=== PATIENT | female | born 1955 ===

== ENCOUNTER 2022-03-09 05:18 | Day surgery (SDC) | payer OTHER | END 2022-03-09 10:50 | disposition home or self-care (01) | LOC: AMB-ENDOS 05:18 → CIR.AMB 05:18 → AMB-ENDOS 10:50 → CIR.AMB 11:45 | PROVIDERS: ATTEND Colon & Rectal Surgery | DX: D12.3 Benign neoplasm of transverse colon (principal); Z86.010 Personal history of colon polyps; K92.1 Melena; Z20.822 Contact with and (suspected) exposure to COVID-19; I10 Essential (primary) hypertension ==

== ENCOUNTER 2022-06-01 04:50 | Inpatient (IN) | payer OTHER ==
[~2022-06-01] VITALS: Ht 157.5 cm; Wt 88.9 kg
[~2022-06-01 04:50] MED LIST: COZAAR100 MG PO; SIMVASTA PO
[2022-06-03] MEDS ORDERED: PERCOCET 5-3251 EACH PO ×2 (11:12→11:20)
== END 2022-06-03 11:43 | disposition home or self-care (01) | DRG 328 ==
LOC: CIR.AMB 04:50 → O/R 12:58 → SURG 12:58 → SURH 13:03 → SURG 14:30 → SURH 06-03 10:25
PROVIDERS: ADMIT Surgery; ATTEND Surgery
PROC: 0WUF4JZ Supplement Abdominal Wall with Synthetic Substitute, Percutaneous Endoscopic Approach (ICD-10-PCS; 2022-06-01)
PROC: 0DN Gastrointestinal System, Release (ICD-10-PCS; principal; 2022-06-01 07:00)
DX: K43.2 Incisional hernia without obstruction or gangrene (principal); K66.0 Peritoneal adhesions (postprocedural) (postinfection); I10 Essential (primary) hypertension; Z86.010 Personal history of colon polyps; Z20.822 Contact with and (suspected) exposure to COVID-19